=== PATIENT | male | born 1990 | race Caucasian/White ===

== ENCOUNTER 2020-09-22 17:13 | Emergency (ER) | payer MEDICARE, MEDICAID, SELFPAY ==
--- NOTE | ~2020-09-22 | XR_ITS ---
EXAMINATION: XR CHEST CLINICAL INFORMATION: Cough. Fever. COMPARISON: None TECHNIQUE: Frontal view of the chest was obtained. FINDINGS: Minimal right lower lung atelectasis versus early infiltrate. The cardiomediastinal silhouette is normal in size. There is no pleural effusion or pneumothorax. No acute osseous abnormality. XR/XR chest 1V IMPRESSION: Minimal right lower lung atelectasis versus early infiltrate.
[2020-09-22 17:21] VITALS: BP 122/56; PULSE 64; RESP 18; TEMP 36.8; O2SAT 100; BMI 24.2
--- NOTE | 2020-09-22 17:57 | ED_ITS ---
HPI - URI/Sore Throat General Chief Complaint: Upper Respiratory Symptoms Stated Complaint: Body aches/Nausea Time Seen by Provider: 09/22/20 17:33 Source: patient Mode of arrival: ambulatory Limitations: no limitations History of Present Illness MD elicited complaint: fever, cough, sore throat and other (body aches, chills) Onset (ago): day(s) (1) Consistency: constant Severity: moderate Able to tolerate fluids by mouth: Yes Exacerbating factors: nothing Relieving factors: nothing Associated symptoms: chills, myalgias, rhinorrhea, sore throat, cough and nausea Treatments prior to arrival: none Related Data Previous Rx's Medication Instructions Recorded doxycycline hyclate 100 mg capsule 100 mg PO BID 7 Days #14 cap 09/22/20 Allergies Allergy/AdvReac Type Severity Reaction Status Date / Time ibuprofen Allergy Unknown swelling Verified 02/07/19 00:00 No Known Allergies Allergy Unverified 10/26/19 17:39 [No Known Allergies*] Review of Systems Review of Systems: Constitutional : positive Fever, positive Chills, positive fatigue, positive Malaise ENT/Mouth : positive sore throat, positive runny nose Eyes: No Discharge Cardiovascular : No Chest Pain, No SOB Respiratory : No Cough, No Sputum Gastrointestinal : No Nausea, No Vomiting, No Diarrhea Genitourinary : No Dysuria, No Urinary Frequency Musculoskeletal : positive Myalgia Skin : No rash Neuro : No Headache All other systems reviewed and are negative [facility] Past Medical History Attestation statement: The following information was validated with the patient. Medical History No acute medical problems Surgical History (Updated 09/22/20 @ 17:27 by Gina Graham) No history of previous surgery Social History Social History (Updated 09/22/20 @ 18:04 by Olimpai Mason DO) Patient Tobacco Use Status: Current everyday Tobacco user Advance Directives: No Advance Directives Information Provided: No Physical Exam Vital Signs: Vital Signs: Last Vital Signs Temp 98.3 F 09/22/20 17:21 Pulse 64 09/22/20 17:21 Resp 18 09/22/20 17:21 BP 122/56 L 09/22/20 17:21 Pulse Ox 100 09/22/20 17:21 Body Mass Index 24.2 Appearance: Alert. Oriented X3. No acute distress. Eyes: Pupils equal, round and reactive to light. ENT: Pharynx normal. Neck: Normal inspection. Neck supple. CVS: Normal heart rate and rhythm. Pulses normal. Respiratory: No respiratory distress. Breath sounds normal. Abdomen: Soft and non-tender. Skin: Skin warm and dry. Normal skin color. Normal skin turgor. Extremities: No lower extremity edema. No calf ttp Neuro: Oriented X 3. No motor deficit. No sensory deficit. Course Course Course Narrative: will start on doxy for possible early pneumonia the patient now tells staff he is in withdrawal from percocet will refer to recovery coaches patient eloped from the ED MDM - URI/Sore Throat MDM Narrative Medical decision making narrative: 29 yo male no PMH here with viral like syndrome x 1 day, has not tried any OTC medications at this time will obtain COVID swab, given tylenol and zofran - dispo per results and findings. no hypoxia. Lab Data Labs: Lab Results 09/22/20 Range/Units 18:14 COVID-19 ([facility]) Negative (Negative) COVID-19 Clin Com See Note Discharge Plan Discharge Clinical Impression: Pneumonia Patient Disposition: Elopement Instructions: Pneumonia (ED) Additional Instructions: return to ED for any worsening symptoms or concerns YOUR COVID TEST WAS NEGATIVE IN THE DEPARTMENT Prescriptions: New doxycycline hyclate 100 mg capsule 100 mg PO BID 7 Days Qty: 14 RF: 0
[2020-09-22] MEDS: Ondansetron ODT 4 MG TAB.RAPDIS TRANSLINGU (18:12)
[2020-09-22] MEDS: Acetaminophen 325 MG TABLET 650 MG PO (18:12)
[2020-09-22 18:35] LABS: COVID-19 Test Negative (Negative); IDNOW Serial# 9DD0AD1C
--- NOTE | 2020-09-22 19:10 | PC.NURSE ---
patient eloping from the emergency department prior to completion of care
--- NOTE | 2020-09-22 19:15 | MHC.RECOVSUP ---
Went to talk with patient and patient had left the ED
== END 2020-09-22 19:30 | disposition left against medical advice (07) ==
PROVIDERS: Emergency Provider Emergency Medicine; PCP Pediatrics
DX: J18.9 Pneumonia, unspecified organism (principal); M79.10 Myalgia, unspecified site; R50.9 Fever, unspecified; R05 Cough; Z79.899 Other long term (current) drug therapy; Z20.822 Contact with and (suspected) exposure to COVID-19
CPT/HCPCS: 36415; 71045; 87635; 99283

== ENCOUNTER 2025-01-17 11:12 | Outpatient (REF) | payer MEDICAID, SELFPAY ==
[2025-01-17 14:25] LABS: Anion Gap 11 (12-20); Blood Urea Nitrogen 8 mg/dL (9-16); Calcium 9.3 mg/dL (8.4-10.2); Carbon Dioxide 28 mmol/L (22-29); Chloride 107 mmol/L (96-108); Cholesterol 202 mg/dL (<200); Estimated Glomerular Filt Rate > 60; HDL Cholesterol 36 mg/dL (>40); Potassium 3.6 mmol/L (3.3-5.1); Sodium 142 mmol/L (135-145); Triglycerides 362 mg/dL (<150)
[2025-01-18 04:14] LABS: Syphilis Screen Nonreactive (Nonreactive)
[2025-01-18 04:27] LABS: HBS Num1 3.67 mIU/mL (0-7.99); HBc Num1 0.26 S/CO (0.00-0.79); HBsAGNum1 0.55 S/CO (0.00-0.99); HIV Num 1 0.07 S/CO (0.00-0.99); Hepatitis B Surface Antigen Negative (Negative); ~HepC Num1 0.13 S/CO (0.00-0.79); ~Hepatitis B Surface Antibody NONREACTIVE (Nonreactive); ~Hepatitis C Antibody Nonreactive (Nonreactive)
== END 2025-01-17 11:13 | disposition home or self-care (01) ==
LOC: HO.HHCL 11:12
PROVIDERS: PCP Nurse Practitioner; Visit Provider Nurse Practitioner
DX: Z11.3 Encounter for screening for infections with a predominantly sexual mode of transmission (principal); Z11.4 Encounter for screening for human immunodeficiency virus [HIV]; Z11.59 Encounter for screening for other viral diseases
CPT/HCPCS: 36415; 80048; 80061; 86704; 86706; 86780; 86803; 87340; 87389